=== PATIENT | male | born 1985 | race Caucasian/White ===

== ENCOUNTER 2016-05-23 09:35 | Emergency (ER) | payer OTHER ==
[2016-05-23 12:04] VITALS: BP 135/75
--- NOTE | 2016-05-23 12:56 | ED ---
Headache - HPI Summary HPI Summary: Patient is a 31yo otherwise healthy male presenting to with CC of left sided cluster HAYES x 4 days. He has been diagnosed with cluster HAYES for many years and they tend to occur at the same time every year and will everyday last up to 2 months. He will get 3-4 of them per day and takes Sumitriptan at first onset of HAYES. He has also tried IBprofen with no relief of symptoms. Also history of migraine HAYES. Denies photophobia or phonophobia or scotomas. Patient has associated tearing from the eye. Worse with smoking and drinking. Denies other health problems. - History Of Current Complaint Chief Complaint: UCHeadachino Stated Complaint: CLUSTER HEADACHE 4 DAYS Hx Obtained From: Patient Onset/Duration: Sudden Onset Initially Headache Was: "Worst Headache Ever" - but similar to previous episodes of cluster HAYES which was also "worst of life.", Initial Pain Scale(0-10) = - 10 Currently Pain Is: Current Pain Scale(0-10)= - 10 Timing: Intermittent, Lasting: - 3 hours Character: Sharp Location of Headache: Temporal - left sided Aggravating Factor: Other - smoking and drinking Allevating Factors: Medication - sumitriptan Associated Signs And Symptoms: Negative - Risk Factors SAH Risk Factors: Negative Meningitis Risk Factors: Negative Temporal Arteritis Risk Factors: Negative - Allergies/Home Medications Allergies/Adverse Reactions: Allergies Allergy/AdvReac Type Severity Reaction Status Date / Time Erythromycin Allergy Hives Verified 05/23/16 12:05 Minocycline Allergy Hives Verified 05/23/16 12:05 environmental Allergy Congestion Uncoded 05/23/16 12:05 Home Medications: Home Medications Albuterol HFA INHALER* [Ventolin HFA Inhaler*] 2 puff INH Q6H PRN 05/23/16 [ History Confirmed 05/23/16] Ibuprofen TAB* [Advil TAB*] 400 mg PO ONCE PRN 05/23/16 [History Confirmed 05/23] Sumatriptan Succinate [Imitrex] 100 mg PO BID PRN 05/23/16 [History Confirmed ] PMH/Surg Hx/FS Hx/Imm Hx Previously Healthy: Yes Endocrine/Hematology History: Denies: Hx Diabetes Cardiovascular History: Denies: Hx Hypertension, Hx Pacemaker/ICD Respiratory History: Reports: Hx Asthma - SPORTS INDUCED Sensory History: Denies: Hx Hearing Aid Psychiatric History: Denies: Hx Panic Disorder - Surgical History Surgery Procedure, Year, and Place: [place],LEFT THUMB NERVE EXPLORATION - Immunization History Hx Pertussis Vaccination: No Immunizations Up to Date: No Infectious Disease History: No Infectious Disease History: Denies: Hx Clostridium Difficile, Hx Hepatitis, Hx Human Immunodeficiency Virus (HIV), Hx of Known/Suspected MRSA, Hx Shingles, Hx Tuberculosis, Hx Known/ Suspected VRE, Hx Known/Suspected VRSA, History Other Infectious Disease, Traveled Outside the [place] in Last 30 Days - Social History Occupation: Employed Full-time Lives: Alone Alcohol Use: Weekly Alcohol Amount: 3 drinks per week Hx Substance Use: Yes Substance Use Type: Reports: Excessive Caffeine Substance Use Comment - Amount & Last Used: 16 oz coffee daily Hx Tobacco Use: Yes Smoking Status (MU): Light Every Day Tobacco Smoker Amount Used/How Often: less than 1/2 ppd Length of Time of Smoking/Using Tobacco: ~ 8 years Review of Systems Constitutional: Negative Positive: Drainage - left eye tearing ENT: Negative Cardiovascular: Negative Respiratory: Negative Positive: no symptoms reported, see HPI Musculoskeletal: Negative Positive: Headache Psychological: Normal All Other Systems Reviewed And Are Negative: Yes Physical Exam Triage Information Reviewed: Yes Vital Signs On Initial Exam: Initial Vitals Temp Pulse Resp BP Pulse Ox 98.1 F 76 20 135/75 97 05/23/16 11:56 05/23/16 11:56 05/23/16 11:56 05/23/16 11:56 05/23/16 11:56 Vital Signs Reviewed: Yes Appearance: Positive: Well-Appearing, Well-Nourished Skin: Positive: Warm, Skin Color Reflects Adequate Perfusion Head/Face: Positive: Normal Head/Face Inspection, Temporal Artery Tenderness Eyes: Positive: EOMI, JOSEFA, Conjunctiva Clear Neck: Positive: Supple, No Lymphadenopathy Respiratory/Lung Sounds: Positive: Clear to Auscultation Cardiovascular: Positive: Normal, RRR Musculoskeletal: Positive: Normal, Strength/ROM Intact Neurological: Positive: Alert, Oriented to Person Place, Time, Speech Normal Psychiatric: Positive: Normal AVPU Assessment: Alert Diagnostics - Vital Signs Vital Signs Temp Pulse Resp BP Pulse Ox 05/23/16 11:56 98.1 F 76 20 135/75 97 - Laboratory Lab Statement: Any lab studies that have been ordered have been reviewed, and results considered in the medical decision making process. Headache Course/Dx - Course Course Of Treatment: Discussed medication options with patient. Not currently having cluster HAYES. Will prescribed sumitriptan with limit of 200mg daily. patient agrees and will follow up with [facility] for further evaluation. Neuro Dr. Sanchez recommended d/t ongoing issues with cluster HAYES not well managed on sumitriptan unless taking 400mg daily. - Diagnoses Differential Diagnosis/HQI/PQRI: Migraine, Sinus Headache, Tension Headache Provider Diagnoses: Cluster headache Discharge - Discharge Plan Condition: Stable Disposition: HOME Prescriptions: SUMAtriptan TAB* [Imitrex TAB*] 100 mg PO SEE INSTRUCTIONS #15 tab MDD 2 Patient Education Materials: Cluster Headache (ED) Referrals: Brian Sanchez MD [Medical Doctor] - Lucas Armando DO [Primary Care Provider] - Additional Instructions: DO NOT SMOKE DO NOT DRINK ALCOHOL LIMIT SUMITRIPTAN USE TO 2 TABS PER DAY IF HEADACHES ARE NOT WELL CONTROLLED WITH THIS MEDICATION, COME BACK TO OR GO TO THE ER. FOLLOW UP WITH PCP AND NEUROLOGIST.
== END 2016-05-23 12:39 | disposition home or self-care (01) ==
LOC: UCCORT 09:35
DX: G44.009 Cluster headache syndrome, unspecified, not intractable (principal); Z88.1 Allergy status to other antibiotic agents; J45.990 Exercise induced bronchospasm; F17.210 Nicotine dependence, cigarettes, uncomplicated
CPT/HCPCS: 99212; G0463